=== PATIENT | male | born 1950 | race Asian ===

== ENCOUNTER → 2023-08-22 | Outpatient (CLI) | payer MEDICARE, MEDICAID ==
[2023-08-22 11:54] LABS: Basophils # (auto) 0 10 ^3/uL (0-0.2); Basophils % (auto) 0.6 % (0.0-2.0); Eosinophils # (auto) 0.1 10 ^3/uL (0-0.8); Eosinophils % (auto) 1.8 % (0.0-7.0); Hematocrit 45.3 % (41.0-53.0); Hemoglobin 15.1 g/dL (13.5-17.5); Lymphocytes # (auto) 1.2 10 ^3/uL (0.4-5.4); Lymphocytes % (auto) 22.1 % (10.0-50.0); Mean Corpuscular Hemoglobin 32.2 pg (28.0-32.0); Mean Corpuscular Hgb Conc. 33.3 g/dL (32.0-36.0); Mean Corpuscular Volume 96.8 fL (80.0-100.0); Monocytes # (auto) 0.6 10 ^3/uL (0-1.3); Monocytes % (auto) 11.4 % (0.0-12.0); Neutrophils # (auto) 3.5 10 ^3/uL (1.6-8.6); Neutrophils % (auto) 64.1 % (37.0-80.0); Nucleated Red Blood Cells % 0.1 %; Red Blood Cells 4.68 10^6/uL (4.5-5.90); Red Cell Distribution Width 13.5 % (11.8-14.3); White Blood Cell 5.4 10^3/uL (4.4-10.8)
[2023-08-22 12:28] LABS: Alanine Aminotransferase 24 U/L (7-40); Alkaline Phosphatase 91 U/L (46-116); Anion Gap 5 (5-15); Aspartate Aminotransferase 27 U/L (13-40); BUN/Creatinine Ratio 17.7 (10.0-20.0); Blood Urea Nitrogen 14 mg/dL (9-23); Calcium 9.1 mg/dL (8.5-10.1); Carbon Dioxide 28 mmol/L (20-30); Chloride 108 mmol/L (98-107); Glucose 98 mg/dL (74-106); LDL Cholesterol 119 mg/dL (< 100); Sodium 141 mmol/L (136-145); Triglycerides 62 mg/dL (< 150)
[2023-08-22 12:29] LABS: Albumin 4.6 g/dL (3.2-4.8); Bilirubin, Total 0.6 mg/dL (0.2-1.0); Cholesterol 167 mg/dL (< 200); HDL Cholesterol 42 mg/dL (40-59); Prostate Specific Antigen 9.72 ng/mL (0.0-4.0); Total Protein 7.5 g/dL (5.7-8.2)
[2023-08-22 12:34] LABS: Free T3 3.17 pg/mL (2.3-4.2); Free T4 (Free Thyroxine) 1.14 ng/dL (0.89-1.76)
[2023-08-23 08:07] LABS: PSA Free 1.12 ng/mL; Prostate Specific Antigen 10.6 ng/mL (0.0-4.0)
== END | disposition home or self-care (01) ==
LOC: LAB 11:35
PROVIDERS: ATTEND Nurse Practitioner Gerontology
DX: Z29.9 Encounter for prophylactic measures, unspecified (principal); Z12.5 Encounter for screening for malignant neoplasm of prostate; E11.9 Type 2 diabetes mellitus without complications; E78.5 Hyperlipidemia, unspecified; E07.9 Disorder of thyroid, unspecified
CPT/HCPCS: 36415; 80053; 80061; 83036; 84153; 84154; 84439; 84443; 84481; 85025

== ENCOUNTER 2024-07-11 09:45 | Emergency (ER) | payer MEDICARE, MEDICAID ==
[~2024-07-11] VITALS: Ht 170.2 cm; Wt 67.4 kg
--- NOTE | 2024-07-11 10:51 | ED.PDOC ---
History of Present Illness HPI Comments 73-year-old male who comes in with chief complaint of cough times approximately three days. The patient has also been having some mild wheezing. There has been no fever or chills but the patient has also been having some body aches. The patient was brought to the emergency department by his who states there are no other people in the house that is sick. The patient denies any chest pain. Chief Complaint: Flu like Time Seen by MD: 10:09 Primary Care Provider: /? Reviewed Notes: Nurses Notes, Medications, Allergies (No allergies to medications) Allergies: Coded Allergies: NO KNOWN ALLERGIES (Unverified , 07/11/24) Home Meds Active Scripts Methylprednisolone (Medrol Dosepak) 4 Mg Mohan, 4 MG PO UD, #21 TAB UAD Prov:MANUEL CAMPBELL MD 07/11/24 Azithromycin (Zithromax) 1 Gm Pow, 1 PACK PO ONCE, #1 PACK Prov:MANUEL CAMPBELL MD 07/11/24 Information Source: Patient Mode of Arrival: Ambulatory Severity: Mild Timing: Days (Symptoms started three days ago) Duration: Since onset Prehospital treatment: None Associated signs and symptoms The patient has a cough with some mild wheezing Past Medical History PAST MEDICAL HISTORY: HTN Surgical History (Other): Left lung procedure Family History Family History: Reviewed,noncontributory to illness Social History Smoker: Non-Smoker, Quit Greater Than 1 Year Alcohol: Denies ETOH Use Drugs: Denies Drug Use Lives In: Assisted Care Constitutional: denies: chills, diaphoresis, fatigue, fever, malaise, sweats, weakness, others EENTM: denies: blurred vision, double vision, ear bleeding, ear discharge, ear drainage, ear pain, ear ringing, eye pain, eye redness, hearing loss, mouth pain, mouth swelling, nasal discharge, nose bleeding, nose congestion, nose pain, photophobia, tearing, throat pain, throat swelling, voice changes, others Respiratory: reports: cough, wheezing; denies: hemoptysis, orthopnea, SOB at rest, shortness of breath, SOB with excertion, stridor, others Cardiovascular: denies: chest pain, dizzy spells, diaphoresis, Dyspnea on exertion, edema, irregular heart beat, left arm pain, lightheadedness, palpitations, PND, syncope, others Gastrointestinal: denies: abdomen distended, abdominal pain, blood streaked bowels, constipated, diarrhea, dysphagia, difficulty swallowing, hematemesis, melena, nausea, poor appetite, poor fluid intake, rectal bleeding, rectal pain, vomiting, others Genitourinary: denies: burning, dysuria, flank pain, frequency, hematuria, inco ntinence, penile discharge, penile sore, pain, testicle pain, testicle swelling, urgency, others Neurological: denies: dizziness, fainting, headache, left sided numbness, left sided weakness, numbness, paresthesia, pre-existing deficit, right sided numbness, right sided weakness, seizure, speech problems, tingling, tremors, weakness, others Musculoskeletal: denies: back pain, gout, joint pain, joint swelling, muscle pain, muscle stiffness, neck pain, others Integumetry: denies: bruises, change in color, change in hair/nails, dryness, laceration, lesions, lumps, rash, wounds, others Allergic/Immunocompromised: denies: Difficulty Healing, Frequent Infections, Hives, Itching, others Hematologic/Lymphatic: denies: anemia, blood clots, easy bleeding, easy bruising, swollen glands, others Endocrine: denies: excessive hunger, excessive sweating, excessive thirst, excessive urination, flushing, intolerance to cold, intolerance to heat, unexplained weight gain, unexplained weight loss, others Psychiatric: denies: anxiety, bipolar disorder, depression, hopeless, panic disorder, schizophrenia, sleepless, suicidal, others Physical Exam General Appearance: No Apparent Distress HEENT: Normal ENT Inspection, Pharynx Normal, TMs Normal Neck: Full Range of Motion, Non-Tender, Normal, Normal Inspection Respiratory: Chest Non-Tender, Lungs Clear, No Accessory Muscle Use, No Respiratory Distress, Normal Breath Sounds Cardiovascular: No Edema, No JVD, No Murmur, No Gallop, Normal Peripheral Pulses, Regular Rate/Rhythm Breast Exam: Deferred Gastrointestinal: No Organomegaly, Non Tender, No Pulsatile Mass, Normal Bowel Sounds, Soft Genitalia: Deferred Pelvic: Deferred Rectal: Deferred Extremities: No calf tenderness, Normal capillary refill, Normal inspection, Normal range of motion, Non-tender, No pedal edema Musculoskeletal : Apperance: Normal Neurologic: Alert, director of search engine optimization II-XII nml as Tested, No Motor Deficits, Normal Affect, Normal Mood, No Sensory Deficits Cerebellar Function: Normal Reflexes: Normal Skin: Dry, Normal Color, Warm Lymphatic: No Adenopathy Was a procedure done? Was a procedure done?: No Differential Dx Considerations may include: Bronchitis, pneumonia, generalized weakness X-Ray, Labs, Meds, VS Vital Signs Date Time Temp Pulse Resp B/P (MAP) Pulse Ox O2 Delivery O2 Flow Rate FiO2 07/11/24 11:25 55 16 95 Room Air 07/11/24 11:25 97.4 55 16 141/78 (99) 95 97.4 07/11/24 10:01 99.3 60 18 157/83 (107) 95 Lab Test 07/11/24 11:30 Range/Units Influenza Type A Antigen Negative Negative Influenza Type B Antigen Negative Negative SARS-CoV-2 Antigen (Rapid) Negative NEGATIVE The influenza a and influenza B are negative The COVID test is negative The chest x-ray shows: IMPRESSION: Bilateral interstitial opacities are of uncertain chronicity, may be chronic and related to interstitial lung disease. Infectious/inflammatory etiology not excluded in the appropriate clinical setting. At this time, the patient was given a prescription of Zithromax and steroids The patient will return to the emergency department's the condition worsens. Images Reviewed?: Images reviewed and evaluated by me Time of 1ST Reevaluation: 10:50 Reevaluation 1ST: Improved Patient Education/Counseling: Diagnosis, Treatment, Prognosis, Need For Follow Up Family Education/Counseling: No Family Present Departure 1 Departure Time of Disposition: 13:25 Impression: Primary Impression: Acute bronchitis Qualified Codes: J20.9 - Acute bronchitis, unspecified Disposition: HOME / SELF CARE / HOMELESS Condition: Fair e-Prescriptions Methylprednisolone (Medrol Dosepak) 4 Mg Mohan 4 MG PO UD, #21 TAB UAD Prov: MANUEL CAMPBELL MD 07/11/24 Azithromycin (Zithromax) 1 Gm Pow 1 PACK PO ONCE, #1 PACK Prov: MANUEL CAMPBELL MD 07/11/24 Discharged With: Self Critical Care Note Critical Care Time?: No Stability Stability form required: No Heart Score Heart Score: Heart Score Response (Comments) Value History N/A 0 EKG N/A 0 Age N/A 0 Risk Factors N/A 0 Troponin N/A 0 Total 0 MANUEL CAMPBELL MD Jul 11, 2024 10:51
[2024-07-11 11:25] VITALS: TEMP 97.4
--- NOTE | 2024-07-11 12:24 | DVH ---
CLINICAL INFORMATION: 73 years old, Male; COUGH. TECHNIQUE: Single AP portable chest radiograph was obtained. COMPARISON: None FINDINGS: Lungs: Bilateral interstitial opacities. No focal consolidation visualized. Cardiac: Heart size is within normal limits. Pulmonary vasculature: Unremarkable. Mediastinum/stephane: Unremarkable. Bones: No acute osseous abnormality identified. Other: No other significant findings. IMPRESSION: Bilateral interstitial opacities are of uncertain chronicity, may be chronic and related to interstit ial lung disease. Infectious/inflammatory etiology not excluded in the appropriate clinical setting.
[2024-07-11 12:32] LABS: Rapid Influenza A Negative (Negative); Rapid Influenza B Negative (Negative)
[2024-07-11 12:33] LABS: COVID19 ANTIGEN SOFIA FIA NEGATIVE (NEGATIVE)
[2024-07-11] MEDS ORDERED: AZIT1POW PO (13:32)
[2024-07-11] MEDS ORDERED: METH4PAK PO (13:32)
[2024-07-11 13:40] VITALS: BP 155/90; PULSE 60; RESP 17; O2SAT 96
== END 2024-07-11 13:41 | disposition home or self-care (01) ==
LOC: ER 09:45
DX: J20.9 Acute bronchitis, unspecified (principal); I10 Essential (primary) hypertension; Z98.890 Other specified postprocedural states; Z87.891 Personal history of nicotine dependence; Z79.899 Other long term (current) drug therapy; Z20.822 Contact with and (suspected) exposure to COVID-19
CPT/HCPCS: 36415; 71045; 87426; 87804